=== PATIENT | female | born 1980 | race Caucasian/White ===

== ENCOUNTER 2016-08-15 17:36 | Emergency (ER) | payer OTHER ==
[2016-08-15 17:48] VITALS: BP 118/81; PULSE 92; RESP 17; TEMP 97.3; O2SAT 98
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
== END 2016-08-15 18:41 | disposition home or self-care (01) ==
DX: M54.2 Cervicalgia (principal); G44.209 Tension-type headache, unspecified, not intractable

== ENCOUNTER 2016-09-30 19:12 | Emergency (ER) | payer OTHER ==
--- NOTE | 2016-09-30 19:25 | CPEKG ---
Heart Rate: 86 RR Interval: 698 P-R Interval: 144 QRSD Interval: 90 QT Interval: 364 QTC Interval: 436 P [place]: 68 QRS [place]: 57 T Wave [place]: 25 EKG Severity - BORDERLINE ECG - EKG Impression: SINUS RHYTHM EKG Impression: PROBABLE LEFT ATRIAL ABNORMALITY Electronically Signed By: Cliff Butts 30-Sep-2016 19:42:08
[2016-09-30 19:31] VITALS: TEMP 98.4
--- NOTE | 2016-09-30 19:37 | EDPHY ---
H & P Smoking Status: Never smoked Time Seen by Provider: 09/30/16 19:17 HPI/ROS: CHIEF COMPLAINT: Chest pain HISTORY OF PRESENT ILLNESS: Patient has been having on and off palpitations for at least the last 2 months. She feels that when she lies down at night she feels her heart beating strongly in her chest although it is not fast or irregular and not skipping beats. Not associated with syncope. She says it has always been less than 93. Tonight around 1700 she was at home and felt left-sided tightness in her chest and pressure. It was on and off and lasted 2 minutes at a time. Also associated with some palpitations as described above. No coughing, no shortness of breath, no leg swelling. REVIEW OF SYSTEMS: Eye: no change in vision ENT: no sore throat Cardiac: HPI Pulmonary: HPI Abdomen: no vomiting, diarrhea, abdominal pain Musculoskeletal: No leg swelling, does have chronic neck pain which is unchanged Skin: no rash Neuro: no headache Constitutional: no fever : no urinary symptoms A comprehensive 10 point review of systems is otherwise negative aside from elements mentioned in the history of present illness. PAST MEDICAL HISTORY: Thyroid disorder Social history: No tobacco or cocaine. She did drive back from [place] and arrived home on Thursday 3 days ago. Family history: Negative for venous thromboembolism or premature coronary disease. General Appearance: Alert and conversant, cooperative. Eyes: No scleral icterus. ENT, Mouth: Normal mucous membranes. Respiratory: Normal respiratory effort, breath sounds equal, lungs are clear to auscultation. Cardiovascular: Regular rate and rhythm. No murmur. Gastrointestinal: Abdomen is soft and non tender. Neurological: Alert and oriented x3. Normally conversant. Face symmetric, normal movement and sensation in all extremities. Skin: Warm and dry, no rashes. Musculoskeletal: No peripheral edema and no joint swelling. No calf tenderness. Psychiatric: Not agitated. Emergency Department course/MDM: Normal EKG without evidence of ischemic changes. Plan for D-dimer with travel back by car from [place] within the last 72 hours. Chest x-ray normal. Signed out to [place] at 1999 with plan to discharge if labs negative. (Cliff Butts) Constitutional: Initial Vital Signs Temperature (C) 36.9 C 09/30/16 19:24 Heart Rate 93 09/30/16 19:24 Respiratory Rate 16 09/30/16 19:24 Blood Pressure 108/86 H 09/30/16 19:24 O2 Sat (%) 96 09/30/16 19:24 O2 Delivery Mode Room Air O2 (L/minute) 2 Allergies/Adverse Reactions: No Known Allergies Allergy (Unverified 08/15/16 17:42) Home Medications: Medication Instructions Recorded Cytomel 5 mcg (*) 08/15/16 Medical Decision Making - Diagnostics Imaging: I viewed and interpreted images myself - Diagnostics EKG Interpretation: 12-lead EKG interpreted by me; official reading is in trace master. My interpretation is sinus rhythm, probable left atrial abnormality, rate 86. No ischemic changes. (Cliff Butts) Imaging Results: Normal chest x-ray personally interpreted. (Cliff Butts) ED Course/Re-evaluation: I assumed care of the patient at 8pm pending further testing. The patient's D- dimer and troponin are negative. The patient will be discharged home per Dr. Butts's instructions. (Yovany Cisneros) Differential Diagnosis: Differential diagnosis considered for chest pain including but not limited to myocardial ischemia, aortic dissection, pericarditis, pulmonary embolus, chest wall pain, pleural inflammation and pulmonary infectious causes. (Cliff Butts) - Data Points Laboratory Results: Laboratory Results 09/30/16 19:28 09/30/16 19:28 09/30/16 09/30/16 09/30/16 19:54 19:28 19:28 WBC RBC Hgb Hct MCV MCH MCHC RDW Plt Count MPV Neut % (Auto) Lymph % (Auto) Caroline % (Auto) Eos % (Auto) Baso % (Auto) Nucleat RBC Rel Count Absolute Neuts (auto) Absolute Lymphs (auto) Absolute Monos (auto) Absolute Eos (auto) Absolute Basos (auto) Absolute Nucleated RBC Immature Gran % Immature Gran # D-Dimer 0.38 ug/mLFEU ug/mLFEU (0.00-0.50) Sodium 137 mEq/L mEq/L (134-144) Potassium 3.9 mEq/L mEq/L (3.5-5.2) Chloride 103 mEq/L mEq/L (97-110) Carbon Dioxide 26 mEq/l mEq/l (22-31) Anion Gap 8 mEq/L mEq/L (8-16) BUN 15 mg/dL mg/dL (7-23) Creatinine 0.7 mg/dL mg/dL (0.6-1.0) Estimated GFR > 60 Glucose 96 mg/dL mg/dL (70-100) Calcium 9.3 mg/dL mg/dL (8.5-10.4) Troponin I < 0.012 ng/mL ng/mL (0-0.034) Urine Color PALE YELLOW Urine Appearance CLEAR Urine pH 6.0 (5.0-7.5) Ur Specific Cedar 1.004 (1.002-1.030) Urine Protein NEGATIVE (NEGATIVE) Urine Ketones NEGATIVE (NEGATIVE) Urine Blood NEGATIVE (NEGATIVE) Urine Nitrate NEGATIVE (NEGATIVE) Urine Bilirubin NEGATIVE (NEGATIVE) Urine Urobilinogen NEGATIVE EU EU (0.2-1.0) Ur Leukocyte Esterase TRACE H (NEGATIVE) Urine RBC Pending Urine WBC Pending Ur Epithelial Cells Pending Urine Glucose NEGATIVE (NEGATIVE) 09/30/16 19:28 WBC 9.14 10^3/uL 10^3/uL (3.80-9.50) RBC 4.52 10^6/uL 10^6/uL (4.18-5.33) Hgb 14.0 g/dL g/dL (12.6-16.3) Hct 40.9 % % (38.0-47.0) MCV 90.5 fL fL (81.5-99.8) MCH 31.0 pg pg (27.9-34.1) MCHC 34.2 g/dL g/dL (32.4-36.7) RDW 12.1 % % (11.5-15.2) Plt Count 252 10^3/uL 10^3/uL (150-400) MPV 10.5 fL fL (8.7-11.7) Neut % (Auto) 63.1 % % (39.3-74.2) Lymph % (Auto) 27.6 % % (15.0-45.0) Caroline % (Auto) 6.9 % % (4.5-13.0) Eos % (Auto) 1.2 % % (0.6-7.6) Baso % (Auto) 0.8 % % (0.3-1.7) Nucleat RBC Rel Count 0.0 % % (0.0-0.2) Absolute Neuts (auto) 5.77 10^3/uL 10^3/uL (1.70-6.50) Absolute Lymphs (auto) 2.52 10^3/uL 10^3/uL (1.00-3.00) Absolute Monos (auto) 0.63 10^3/uL 10^3/uL (0.30-0.80) Absolute Eos (auto) 0.11 10^3/uL 10^3/uL (0.03-0.40) Absolute Basos (auto) 0.07 10^3/uL 10^3/uL (0.02-0.10) Absolute Nucleated RBC 0.00 10^3/uL 10^3/uL (0-0.01) Immature Gran % 0.4 % % (0.0-1.1) Immature Gran # 0.04 10^3/uL 10^3/uL (0.00-0.10) D-Dimer Sodium Potassium Chloride Carbon Dioxide Anion Gap BUN Creatinine Estimated GFR Glucose Calcium Troponin I Urine Color Urine Appearance Urine pH Ur Specific Cedar Urine Protein Urine Ketones Urine Blood Urine Nitrate Urine Bilirubin Urine Urobilinogen Ur Leukocyte Esterase Urine RBC Urine WBC Ur Epithelial Cells Urine Glucose Departure - Departure Disposition: Home, Routine, Self-Care Clinical Impression: Chest pain Qualifiers: Chest pain type: unspecified Qualified Code(s): R07.9 - Chest pain, unspecified Condition: Good Instructions: Chest Pain (ED) Referrals: Janel Tineo [Primary Care Provider] - As per Instructions
[2016-09-30 19:46] LABS: % IMMATURE GRANULYOCYTES 0.4 % (0.0-1.1); ABSOLUTE IMMATURE GRANULOCYTES 0.04 10^3/uL (0.00-0.10); ADD DIFF? NO; ADD MORPH? NO; ADD SCAN? NO; ATYPICAL LYMPHOCYTE FLAG 10 (0-99); FRAGMENT RBC FLAG 0 (0-99); HEMATOCRIT 40.9 % (38.0-47.0); LEFT SHIFT FLG 0 (0-99); LIPEMIA HEMOLYSIS FLAG 90 (0-99); MEAN CELL HEMOGLOBIN CONCENTR. 34.2 g/dL (32.4-36.7); MEAN CELL VOLUME 90.5 fL (81.5-99.8); MEAN PLATELET VOLUME 10.5 fL (8.7-11.7); PLATELET CLUMPS FLAG 0 (0-99); PLATELET COUNT 252 10^3/uL (150-400); RED BLOOD CELL COUNT 4.52 10^6/uL (4.18-5.33); RED CELL DISTRIBUTION WIDTH 12.1 % (11.5-15.2)
[2016-09-30 20:04] LABS: ANION GAP 8 mEq/L (8-16); CALCIUM 9.3 mg/dL (8.5-10.4); CARBON DIOXIDE 26 mEq/l (22-31); CHLORIDE 103 mEq/L (97-110); CREATININE 0.7 mg/dL (0.6-1.0); GLOMERULAR FILTRATION RATE > 60; GLUCOSE 96 mg/dL (70-100); POTASSIUM 3.9 mEq/L (3.5-5.2); SODIUM 137 mEq/L (134-144)
[2016-09-30 20:15] LABS: COLOR PALE YELLOW; LEUKOCYTE ESTERASE,URINE TRACE (NEGATIVE); NITRITE,URINE NEGATIVE (NEGATIVE)
[2016-09-30 20:15] LABS: TROPONIN I < 0.012 ng/mL (0-0.034)
[2016-09-30 20:20] LABS: BACTERIA TRACE /hpf (NONE SEEN)
[2016-09-30 20:21] LABS: RBC,URINE NONE SEEN /hpf (0-3)
[2016-09-30 20:30] VITALS: BP 94/63; PULSE 71; RESP 14; O2SAT 97
== END 2016-09-30 20:29 | disposition home or self-care (01) ==
DX: R07.89 Other chest pain (principal)